=== PATIENT | female | born 1960 | race Caucasian/White ===

== ENCOUNTER → 2016-09-10 | Day surgery (SDC) | payer OTHER ==
[~2016-09-10] VITALS: Ht 167.6 cm; Wt 135.5 kg
[~2016-09-10] MED LIST: ALBI1INJ2 SQ; ALPR0.5T3 PO; APREPITANT 40 MG CAP ONE; BUPR300T PO; CHLORHEXIDINE GLUCONATE 2 % 1 PACK (2 CLOTHS) TOPICAL PRN; CIPROFLOXACIN/DEXT 400 MG/200 ML IV PRN; CYCL1TAB29 PO; DO NOT ADM ANY ANTICOAGULANT DRUGS PRN; FAMOTIDINE 20 MG/2 ML VIAL ONE; FENO145T2 PO; FEXO15TA PO; FLUT1SPR5 EACH NARE; IBUP200T2 PO; INSULIN HUMAN REGULAR 1,000 UNITS/10 ML VIAL SQ PRN; LACTATED RINGER'S 1000 ML IV PRN; LEVO100T5 PO; LISI-519 PO; METF500T PO; METOPROLOL TARTRATE 25 MG TAB PO PRN; MIDAZOLAM HCL 2 MG/2 ML VIAL ONE; MODA200T12 PO; NAPR220C22 PO; ONDANSETRON HCL 4 MG/2 ML VIAL ONE; PHENYLEPH/NS 1000 MCG/10 ML SYR IV ONE; POVIDONE IODINE 5% (ANTISEPSIS KIT) 4 APPLICATIONS EACH NARE PRN; PROPOFOL 200 MG/20 ML AMP IV ONE; SODIUM CHLORID 0.9% 500 ML IV PRN; SODIUM CHLORIDE FLUSH BID IV FLUSH SCH; SODIUM CHLORIDE FLUSH PRN IV FLUSH; TRAM50TA PO; VENTAER INH; ePHEDrine/NS 25 MG/5 ML SYR IV ONE; fentaNYL CITRATE 250 MCG/5 ML AMP ONE
[2016-09-10 06:37] VITALS: BP 125/76; PULSE 85; RESP 20; TEMP 98; O2SAT 96
[2016-09-10 06:49] LABS: INTERNATIONAL NORMALIZED RATIO 0.9 RATIO; PROTHROMBIN TIME - PATIENT 9.7 SEC (9.8-11.6)
[2016-09-10 09:35] VITALS: BP 115/51; PULSE 82; RESP 20; TEMP 98; O2SAT 95
--- NOTE | 2016-09-10 09:40 | MP ---
cc: ROBERT HARPER MD DATE OF OPERATION 09/10/2016 PREOPERATIVE DIAGNOSIS Left renal calculus. POSTOPERATIVE DIAGNOSIS Left renal calculus. PROCEDURE PERFORMED Left ESWL. SURGEON MD Loyda ANESTHESIA General. COMPLICATIONS None. PREOP ANTIBIOTICS Cipro 400 mg IV. DRAINS None. SPECIMEN None. ESTIMATED BLOOD LOSS Minimal. CONDITION Stable to recovery. INDICATIONS The patient is a 56-year-old female with a longstanding history of kidney stones who has been complaining of recent left-sided flank pain. The patient had a KUB done which showed an approximately 1 cm stone at the left lower pole. The treatment options were discussed. The patient would like to proceed with ESWL as she has had one in the past. The risks, benefits and alternatives were explained to the patient. The patient would like to proceed. Informed consent was obtained. DETAILS OF PROCEDURE The patient was properly identified, brought back to the operative room, laid supine on the operating table. An appropriate time-out was performed under the direction of Anesthesiology. The patient was then induced under general aesthetic. Preoperative antibiotics in the form of Cipro 400 mg IV were given one hour prior to the start of the procedure. The patient was then prepped and draped in the normal, sterile surgical fashion. Fluoroscopic images were taken which easily showed the 1-cm stone in the left lower pole. Approximately 2500 shocks in increments of 5 were given to the stone. The stone seemed to easily fragment throughout the portion of the case. Following 2500 shocks, this concluded the procedure. The patient was extubated and sent to Recovery in stable condition. She will be discharged home with pain medication. She will follow up in 7 to 10 days with a KUB prior. Robert Harper MD EMF/SSB /8:17 AM /9:32 AM
== END | disposition home or self-care (01) ==
LOC: HSDC 05:40
PROVIDERS: ATTEND Urology
DX: N20.0 Calculus of kidney (principal); I10 Essential (primary) hypertension; E78.5 Hyperlipidemia, unspecified; J45.909 Unspecified asthma, uncomplicated; E11.9 Type 2 diabetes mellitus without complications; E03.9 Hypothyroidism, unspecified; G47.30 Sleep apnea, unspecified; E66.9 Obesity, unspecified; Z68.42 Body mass index [BMI] 45.0-49.9, adult; Z79.84 Long term (current) use of oral hypoglycemic drugs; Z99.81 Dependence on supplemental oxygen
CPT/HCPCS: 50590; 85610; J0744; J2250; J2370; J2405; J3010; J7120; J8501